=== PATIENT | male | born 1985 | race Caucasian/White ===

== ENCOUNTER → 2016-03-21 | Outpatient (CLI) | payer OTHER ==
[2016-03-21 14:57] LABS: ALBUMIN/GLOBULIN RATIO 1.33 (1.00-1.93); ALKALINE PHOSPHATASE 54 U/L (45-117); ALT/SGPT 28 U/L (12-78); ANION GAP 9 MEQ/L (8-16); AST/SGOT 16 U/L (15-37); BILIRUBIN,TOTAL 0.5 MG/DL (0.2-1.0); BLOOD UREA NITROGEN 11 MG/DL (7-18); CALCIUM LEVEL 8.6 MG/DL (8.5-10.1); CARBON DIOXIDE LEVEL 29 MEQ/L (21-32); CHLORIDE LEVEL 104 MEQ/L (98-107); CHOLESTEROL LEVEL 202 MG/DL (<200); CREATININE FOR GFR 0.85 MG/DL (0.70-1.30); FREE T4 0.91 NG/DL (0.76-1.46); GLOMERULAR FILTRATION RATE > 60.0 (>60); GLUCOSE, FASTING 89 MG/DL (70-105); POTASSIUM SERUM 4.1 MEQ/L (3.5-5.1); SODIUM LEVEL 142 MEQ/L (136-145); TRIGLYCERIDES LEVEL 41 MG/DL (<150)
--- NOTE | 2016-03-22 04:13 | REP ---
Clinical: Enlarged thyroid by physical examination . Technique: Orozco scale and color evaluation of the thyroid gland using the linear high frequency transducer. Findings: The thyroid gland is normal in contour, shape, size, and echogenicity. No nodule/mass or cystic abnormalities are appreciated. Right thyroid lobe measures 5.8 x 2.3 x 1.5 cm. Isthmus measures 2.2 mm in width. Left thyroid lobe measures 5.9 x 2.0 x 1.3 cm. Impression: Normal thyroid ultrasound. Signed by Cale House MD 03/22/2016 04:04 A
== END ==
LOC: M LAB 12:52
PROVIDERS: ATTEND Nurse Practitioner Family
DX: E04.0 Nontoxic diffuse goiter (principal)

== ENCOUNTER 2016-04-13 03:26 | Emergency (ER) | payer OTHER ==
--- NOTE | 2016-04-13 06:18 | EDDOCDS ---
Nurse's Notes [facility] Name: Anthony Rothman Age: 30 yrs Sex: Male : 1985 Arrival Date: 04/13/2016 Time: 03:26 Bed 15 Private MD: Diagnosis: Viral conjunctivitis Presentation: 04/13 03:39 Presenting complaint: Patient states: he thinks he is getting pink eye. Reports nn1 pressure and tingling around the eyes. Mechanism of Injury: No Mechanism of Injury. The patient denies any loss of vision. Adult Sepsis Screening: The patient does not have new or worsening altered mentation. Patient's respiratory rate is less than 22. Systolic blood pressure is greater than 100. Patient has a qSOFA score of 0- Negative Sepsis Screen. Suicide/Homicide risk assessment- the patient denies having any suicidal and/or homicidal ideations and does not present with any other emotional, behavioral or mental health complaints. Status: Patient is not a service developer or dependent. Transition of care: patient was not received from another setting of care. 03:39 Acuity: KEREN Level 4 nn1 03:39 Method Of Arrival: Walkin/Carried/Asstd nn1 Triage Assessment: 03:41 General: Appears in no apparent distress, comfortable, Behavior is appropriate for age, nn1 cooperative. Pain: Location: right eye and left eye Pain currently is 3 out of 10 on a pain scale. HIV screening NA for this visit Offered previously. EENT: Eyes No redness or tearing noted in either eye. . Historical: - Allergies: No known drug Allergies; - Home Meds: 1. aspirin 325 mg Oral tab 2 tabs as needed - PMHx: none; - PSHx: none; - Social history: Smoking status: Patient states was never smoker of tobacco. No barriers to communication noted, The patient speaks fluent Bhutanese, Speaks appropriately for age. - Family history: Not pertinent. - : The pt / caregiver states he / she is not on anticoagulants. Home medication list is obtained from the patient. - Exposure Risk Screening:: None identified. Screenin:38 Screening information is obtained from the patient. Fall risk: No risks identified. kas2 Assistance ADL's: requires no assistance with activities of daily living. Abuse/DV Screen: The patient / caregiver reports he/she is: not in a situation that causes fear, pain or injury. Nutritional screening: No deficits noted. Advance Directives: Currently, there is no health care proxy. There is no active DNR order. There is no living will. There is no Power of Bicycle Mechanic. home support is adequate. Assessment: 04:37 General: Appears in no apparent distress, comfortable, well nourished, well groomed, kas2 Behavior is appropriate for age, cooperative. Pain: Denies pain. Neurological: Level of Consciousness is awake, alert, Oriented to person, place, time. EENT: Sclera/Cornea are reddened in inner aspect of conjuctiva of right eye. Cardiovascular: Rhythm is regular. Respiratory: Airway is patent Respiratory effort is even, unlabored, Respiratory pattern is regular, symmetrical. Derm: Skin is intact, Skin is dry, Skin temperature is warm. 05:45 General: Appears in no apparent distress, comfortable, Behavior is appropriate for age, cf2 cooperative. Pain: Denies pain. Neurological: Level of Consciousness is awake, alert, Oriented to person, place, time. Cardiovascular: Rhythm is regular. Respiratory: Airway is patent Respiratory effort is even, unlabored, Respiratory pattern is regular, symmetrical. Derm: Skin is intact, Skin is dry, Skin temperature is warm. Vital Signs: 03:42 BP 129 / 79; Pulse 55; Resp 18; Temp 96.9(O); Pulse Ox 97% on R/A; Weight 102.06 kg; nn1 Height 6 ft. 0 in. (182.88 cm); Pain 3/10; 06:15 BP 132 / 81; Pulse 59; Resp 18; Temp 97.6(O); Pulse Ox 99% on R/A; Pain 0/10; kas2 03:42 Body Mass Index 30.52 (102.06 kg, 182.88 cm) nn1 Vitals: 03:42 Log In Time: April 13, 2016 at 03:25. nn1 ED Course: 03:28 Patient visited by Louise Garcia. gjb 03:28 Patient moved to Waiting gjb 03:40 Triage Initiated nn1 04:32 Patient moved to 15 nn1 04:34 [facility] gk1 04:34 Jordan Cleveland DO is Attending Physician. gk1 04:35 Patient visited by Maryjane Zacarias RN. kas2 04:35 Patient visited by Maryjane Zacarias RN. kas2 04:38 Patient visited by Maryjane Zacarias RN. kas2 05:09 Patient visited by Madyson Agrawal RN. cf2 05:35 Patient visited by Jordan Cleveland DO. mm11 05:46 Patient visited by Madyson Agrawal RN. cf2 06:04 Patient visited by Iván Domingo DO. gk1 06:06 Sury Paniagua is Referral Physician. gk1 06:16 The patient / caregiver is instructed regarding the plan of care and ED course. kas2 06:16 No IV's were initiated during this patient's visit. No procedures done that require kas2 assistance. Order Results: There are currently no results for this order. Outcome: 06:06 Discharge ordered by Provider. gk1 06:15 Discharge Assessment: patient administered narcotics - no. The following High Risk kas2 Discharge criteria are identified: None. Discharged to home ambulatory, with family. Condition: good Condition: stable Condition: improved. No special radiology studies were completed. Property :Personal belongings accompany Pt. 06:16 Patient left the ED. kas2 Signatures: Jordan Cleveland DO DO mm11 Casandra Trotter RN RN davin1 Louise Garcia Kim, RN RN [facility] Madyson Agrawal,NAIN RN 2 Iván Domingo DO DO 1 NELL
--- NOTE | 2016-04-13 06:18 | EDDOCDS ---
Physician Documentation [facility] Name: Anthony Rothman Age: 30 yrs Sex: Male : 1985 Arrival Date: 04/13/2016 Time: 03:26 Bed 15 Private MD: Disposition: 04/13/16 06:06 Discharged to Home/Self Care. Impression: Viral conjunctivitis. - Condition is Stable. - Discharge Instructions: Eye - Viral Conjunctivitis. - Prescriptions for azelastine 0.05 % Ophthalmic drops - instill 1 drop by OPHTHALMIC route 2 times per day; 1 bottle. - Medication Reconciliation, Local Pharmacy Hours form. - Follow up: Sury Paniagua; When: As needed; Reason: Recheck today's complaints, Continuance of care. - Problem is new. - Symptoms are unchanged. - Notes: Please apply eyedrops as prescribed daily until symptoms resolve. Follow up with PCP as needed. Historical: - Allergies: No known drug Allergies; - Home Meds: 1. aspirin 325 mg Oral tab 2 tabs as needed - PMHx: none; - PSHx: none; - Social history: Smoking status: Patient states was never smoker of tobacco. No barriers to communication noted, The patient speaks fluent Hebrew, Speaks appropriately for age. - Family history: Not pertinent. - : The pt / caregiver states he / she is not on anticoagulants. Home medication list is obtained from the patient. - Exposure Risk Screening:: None identified. Vital Signs: 04/13 03:42 BP 129 / 79; Pulse 55; Resp 18; Temp 96.9(O); Pulse Ox 97% on R/A; Weight 102.06 kg / nn1 225 lbs; Height 6 ft. 0 in. (182.88 cm); Pain 3/10; 06:15 BP 132 / 81; Pulse 59; Resp 18; Temp 97.6(O); Pulse Ox 99% on R/A; Pain 0/10; kas2 03:42 Body Mass Index 30.52 (102.06 kg, 182.88 cm) nn1 MDM: 06:16 Financial registration complete. pm4 Signatures: Casandra Trotter RN RN nn1 Maryjane Zacarias RN RN kas2 Iván Domingo, DO gk1 Harrison Hansen, Reg Reg pm4 MTDD
--- NOTE | 2016-04-15 07:17 | EDDOCDS ---
Nurse's Notes [facility] Name: Anthony Rothman Age: 30 yrs Sex: Male : 1985 Arrival Date: 04/13/2016 Time: 03:26 Bed 15 Private MD: Diagnosis: Viral conjunctivitis Presentation: 04/13 03:39 Presenting complaint: Patient states: he thinks he is getting pink eye. Reports nn1 pressure and tingling around the eyes. Mechanism of Injury: No Mechanism of Injury. The patient denies any loss of vision. Adult Sepsis Screening: The patient does not have new or worsening altered mentation. Patient's respiratory rate is less than 22. Systolic blood pressure is greater than 100. Patient has a qSOFA score of 0- Negative Sepsis Screen. Suicide/Homicide risk assessment- the patient denies having any suicidal and/or homicidal ideations and does not present with any other emotional, behavioral or mental health complaints. Status: Patient is not a appliance service supervisor or dependent. Transition of care: patient was not received from another setting of care. 03:39 Acuity: KEREN Level 4 nn1 03:39 Method Of Arrival: Walkin/Carried/Asstd nn1 Triage Assessment: 03:41 General: Appears in no apparent distress, comfortable, Behavior is appropriate for age, nn1 cooperative. Pain: Location: right eye and left eye Pain currently is 3 out of 10 on a pain scale. HIV screening NA for this visit Offered previously. EENT: Eyes No redness or tearing noted in either eye. . Historical: - Allergies: No known drug Allergies; - Home Meds: 1. aspirin 325 mg Oral tab 2 tabs as needed - PMHx: none; - PSHx: none; - Social history: Smoking status: Patient states was never smoker of tobacco. No barriers to communication noted, The patient speaks fluent Nigerien, Speaks appropriately for age. - Family history: Not pertinent. - : The pt / caregiver states he / she is not on anticoagulants. Home medication list is obtained from the patient. - Exposure Risk Screening:: None identified. Screenin:38 Screening information is obtained from the patient. Fall risk: No risks identified. kas2 Assistance ADL's: requires no assistance with activities of daily living. Abuse/DV Screen: The patient / caregiver reports he/she is: not in a situation that causes fear, pain or injury. Nutritional screening: No deficits noted. Advance Directives: Currently, there is no health care proxy. There is no active DNR order. There is no living will. There is no Power of Awning Assembler. home support is adequate. Assessment: 04:37 General: Appears in no apparent distress, comfortable, well nourished, well groomed, kas2 Behavior is appropriate for age, cooperative. Pain: Denies pain. Neurological: Level of Consciousness is awake, alert, Oriented to person, place, time. EENT: Sclera/Cornea are reddened in inner aspect of conjuctiva of right eye. Cardiovascular: Rhythm is regular. Respiratory: Airway is patent Respiratory effort is even, unlabored, Respiratory pattern is regular, symmetrical. Derm: Skin is intact, Skin is dry, Skin temperature is warm. 05:45 General: Appears in no apparent distress, comfortable, Behavior is appropriate for age, cf2 cooperative. Pain: Denies pain. Neurological: Level of Consciousness is awake, alert, Oriented to person, place, time. Cardiovascular: Rhythm is regular. Respiratory: Airway is patent Respiratory effort is even, unlabored, Respiratory pattern is regular, symmetrical. Derm: Skin is intact, Skin is dry, Skin temperature is warm. Vital Signs: 03:42 BP 129 / 79; Pulse 55; Resp 18; Temp 96.9(O); Pulse Ox 97% on R/A; Weight 102.06 kg; nn1 Height 6 ft. 0 in. (182.88 cm); Pain 3/10; 06:15 BP 132 / 81; Pulse 59; Resp 18; Temp 97.6(O); Pulse Ox 99% on R/A; Pain 0/10; kas2 03:42 Body Mass Index 30.52 (102.06 kg, 182.88 cm) nn1 Vitals: 03:42 Log In Time: April 13, 2016 at 03:25. nn1 ED Course: 03:28 Patient visited by Louise Garcia. gjb 03:28 Patient moved to Waiting gjb 03:40 Triage Initiated nn1 04:32 Patient moved to 15 nn1 04:34 [facility] gk1 04:34 Jordan Cleveland DO is Attending Physician. gk1 04:35 Patient visited by Maryjane Zacarias RN. kas2 04:35 Patient visited by Maryjane Zacarias RN. kas2 04:38 Patient visited by Maryjane Zacarias RN. kas2 05:09 Patient visited by Madyson Agrawal RN. cf2 05:35 Patient visited by Jordan Cleveland DO. mm11 05:46 Patient visited by Madyson Agrawal RN. cf2 06:04 Patient visited by Iván Domingo DO. gk1 06:06 Sury Paniagua is Referral Physician. 1 06:16 The patient / caregiver is instructed regarding the plan of care and ED course. kas2 06:16 No IV's were initiated during this patient's visit. No procedures done that require [facility]2 assistance. 06:17 [facility] Payment Agreement was scanned into [employer] and attached to record. pm4 09:50 T-Sheet-- Draft Copy was scanned into [employer] and attached to record. gb Order Results: There are currently no results for this order. Outcome: 06:06 Discharge ordered by Provider. 1 06:15 Discharge Assessment: patient administered narcotics - no. The following High Risk [facility] Discharge criteria are identified: None. Discharged to home ambulatory, with family. Condition: good Condition: stable Condition: improved. No special radiology studies were completed. Property :Personal belongings accompany Pt. 06:16 Patient left the ED. [facility] Signatures: Jessica Rincon, Reg Reg gb Jordan Cleveland DO DO mm11 Casandra Trotter RN RN davin1 Louise Garcia Kim, RN RN [facility] Madyson Agrawal,NAIN GILLETTE 2 Iván Domingo DO DO gk1 Harrison Hansen, Reg Reg pm4 Chart Complete MTDD
--- NOTE | 2016-04-15 07:17 | EDDOCDS ---
Physician Documentation [facility] Name: Anthony Rothman Age: 30 yrs Sex: Male : 1985 Arrival Date: 04/13/2016 Time: 03:26 Bed 15 Private MD: Disposition: 04/13 06:31 I have independently interviewed and examined the patient, and I agree with the mm11 investigation, diagnosis and treatment plan as documented by the Resident. Disposition: 04/13/16 06:06 Discharged to Home/Self Care. Impression: Viral conjunctivitis. - Condition is Stable. - Discharge Instructions: Eye - Viral Conjunctivitis. - Prescriptions for azelastine 0.05 % Ophthalmic drops - instill 1 drop by OPHTHALMIC route 2 times per day; 1 bottle. - Medication Reconciliation, Local Pharmacy Hours form. - Follow up: Sury Paniagua; When: As needed; Reason: Recheck today's complaints, Continuance of care. - Problem is new. - Symptoms are unchanged. - Notes: Please apply eyedrops as prescribed daily until symptoms resolve. Follow up with PCP as needed. Historical: - Allergies: No known drug Allergies; - Home Meds: 1. aspirin 325 mg Oral tab 2 tabs as needed - PMHx: none; - PSHx: none; - Social history: Smoking status: Patient states was never smoker of tobacco. No barriers to communication noted, The patient speaks fluent Greek, Speaks appropriately for age. - Family history: Not pertinent. - : The pt / caregiver states he / she is not on anticoagulants. Home medication list is obtained from the patient. - Exposure Risk Screening:: None identified. Vital Signs: 03:42 BP 129 / 79; Pulse 55; Resp 18; Temp 96.9(O); Pulse Ox 97% on R/A; Weight 102.06 kg / nn1 225 lbs; Height 6 ft. 0 in. (182.88 cm); Pain 3/10; 06:15 BP 132 / 81; Pulse 59; Resp 18; Temp 97.6(O); Pulse Ox 99% on R/A; Pain 0/10; kas2 03:42 Body Mass Index 30.52 (102.06 kg, 182.88 cm) nn1 MDM: 06:16 Financial registration complete. pm4 06:17 [facility] Payment Agreement was scanned into [employer] and attached to record. pm4 09:50 T-Sheet-- Draft Copy was scanned into [employer] and attached to record. gb Signatures: Jessica Rincon, Reg Reg gb Jordan Cleveland, DO DO mm11 Casandra Trotter,RN RN nn1 Maryjane Zacarias RN RN kas2 Chayo, Iván, DO DO gk1 Harrison Hansen, Reg Reg pm4 The chart was reviewed and I authenticate all verbal orders and agree with the evaluation and treatment provided.Attachments: 06:17 [facility] Payment Agreement pm4 09:50 T-Sheet-- Draft Copy gb Chart Complete MTDD
--- NOTE | 2016-04-15 07:17 | EDDOCDS ---
Physician Documentation [facility] Name: Anthony Rothman Age: 30 yrs Sex: Male : 1985 Arrival Date: 04/13/2016 Time: 03:26 Bed 15 Private MD: Disposition: 04/13 06:31 I have independently interviewed and examined the patient, and I agree with the mm11 investigation, diagnosis and treatment plan as documented by the Resident. Disposition: 04/13/16 06:06 Discharged to Home/Self Care. Impression: Viral conjunctivitis. - Condition is Stable. - Discharge Instructions: Eye - Viral Conjunctivitis. - Prescriptions for azelastine 0.05 % Ophthalmic drops - instill 1 drop by OPHTHALMIC route 2 times per day; 1 bottle. - Medication Reconciliation, Local Pharmacy Hours form. - Follow up: Sury Paniagua; When: As needed; Reason: Recheck today's complaints, Continuance of care. - Problem is new. - Symptoms are unchanged. - Notes: Please apply eyedrops as prescribed daily until symptoms resolve. Follow up with PCP as needed. Historical: - Allergies: No known drug Allergies; - Home Meds: 1. aspirin 325 mg Oral tab 2 tabs as needed - PMHx: none; - PSHx: none; - Social history: Smoking status: Patient states was never smoker of tobacco. No barriers to communication noted, The patient speaks fluent Greek, Speaks appropriately for age. - Family history: Not pertinent. - : The pt / caregiver states he / she is not on anticoagulants. Home medication list is obtained from the patient. - Exposure Risk Screening:: None identified. Vital Signs: 03:42 BP 129 / 79; Pulse 55; Resp 18; Temp 96.9(O); Pulse Ox 97% on R/A; Weight 102.06 kg / nn1 225 lbs; Height 6 ft. 0 in. (182.88 cm); Pain 3/10; 06:15 BP 132 / 81; Pulse 59; Resp 18; Temp 97.6(O); Pulse Ox 99% on R/A; Pain 0/10; kas2 03:42 Body Mass Index 30.52 (102.06 kg, 182.88 cm) nn1 MDM: 06:16 Financial registration complete. pm4 06:17 [facility] Payment Agreement was scanned into [employer] and attached to record. pm4 09:50 T-Sheet-- Draft Copy was scanned into [employer] and attached to record. gb Signatures: Jessica Rincon, Reg Reg gb Jordan Cleveland, DO DO mm11 Casandra Trotter,RN RN nn1 Maryjane Zacarias RN RN kas2 Chayo, Iván, DO DO gk1 Harrison Hansen, Reg Reg pm4 The chart was reviewed and I authenticate all verbal orders and agree with the evaluation and treatment provided.Attachments: 06:17 [facility] Payment Agreement pm4 09:50 T-Sheet-- Draft Copy gb Chart Complete MTDD
== END 2016-04-13 06:16 | disposition home or self-care (01) ==
LOC: M ED 03:26
DX: B30.9 Viral conjunctivitis, unspecified (principal)